=== PATIENT | female | born 1995 | race Caucasian/White ===

== ENCOUNTER → 2018-11-13 | Emergency (ER) | payer MEDICAID, OTHER ==
[~2018-11-13] VITALS: Ht 172.7 cm; Wt 56.7 kg
[~2018-11-13] MED LIST: diphenhydrAMINE HCL 50 MG CAPSULE ONE; diphenhydrAMINE HCL 50 MG CAPSULE PO ONE; predniSONE 10 MG TABLET ONE; predniSONE 10 MG TABLET PO ONE
[2018-11-13 14:33] VITALS: BP 126/79
--- NOTE | 2018-11-13 14:44 | NUR ---
PATIENT AMBULTORY NON DISTRESS MD @ BEDSIDE
--- NOTE | 2018-11-13 15:50 | NUR ---
DC HOME INTRUCTION GIVEN AGREES TO FOLLOW UP PMD IN 2 DAYS VERBALIZED UNDERSTNDING
== END | disposition home or self-care (01) ==
LOC: ER 14:34
DX: T78.40XA Allergy, unspecified, initial encounter (principal); X58.XXXA Exposure to other specified factors, initial encounter
CPT/HCPCS: 99283; J7512; Q0163

== ENCOUNTER 2023-03-23 13:21 | Emergency (ER) | payer OTHER ==
[~2023-03-23] VITALS: Ht 172.7 cm; Wt 68.0 kg
[2023-03-23] MEDS ORDERED: FAMOTIDINE/PF INJ 20 MG/2 ML VIAL IV ONE (14:59)
[2023-03-23 15:04] LABS: BASOPHILS % (AUTO) 0.3 % (0.0-2.0); EOSINOPHILS # (AUTO) 0.1 K/uL (0.0-0.7); EOSINOPHILS % (AUTO) 1.3 % (0.0-6.0); HEMATOCRIT 41 % (33-45); HEMOGLOBIN 14.2 g/dL (11.5-14.8); LYMPHOCYTES # (AUTO) 2.5 K/uL (0.8-4.8); LYMPHOCYTES % (AUTO) 27.8 % (20.0-44.0); MEAN CORPUSCULAR HEMOGLOBIN 30 PG (26.0-33.0); MEAN CORPUSCULAR HGB CONC 35 g/dl (31.0-36.0); MEAN CORPUSCULAR VOLUME 88 fL (82-100); MONOCYTES # (AUTO) 0.7 K/uL (0.1-1.30); NEUTROPHILS # (AUTO) 5.6 K/uL (1.8-8.9); NEUTROPHILS % (AUTO) 62.6 % (43.0-81.0); PLATELET COUNT (AUTO) 258 K/uL (150-450); RED CELL DISTRIBUTION WIDTH 13.4 % (11.5-15.0)
[2023-03-23] MEDS: IV NS 0.9% 1,000 ML BAG IV ONE (15:07)
[2023-03-23] MEDS: FAMOTIDINE/PF INJ 20 MG/2 ML VIAL IV ONE (15:08)
[2023-03-23 15:20] LABS: ALBUMIN 3.8 g/dL (3.4-5.0); BILIRUBIN,DIRECT 0.1 mg/dL (0.0-0.2); BILIRUBIN,TOTAL 0.5 mg/dL (0.2-1.0); CALCIUM, SERUM 9.2 mg/dL (8.5-10.1); CREATININE 0.7 mg/dL (0.6-1.3); POTASSIUM 3.8 mmol/L (3.5-5.1); TOTAL PROTEIN, SERUM 8.3 g/dL (6.4-8.2)
[2023-03-23 15:25] LABS: PREGNANCY TEST URINE QUAL NEGATIVE (NEGATIVE)
[2023-03-23 15:29] LABS: APPEARANCE,URINE CLEAR (CLEAR); BILIRUBIN,URINE NEGATIVE (NEGATIVE); BLOOD, URINE TRACE-INTA Ery/uL (NEGATIVE); COLOR,URINE YELLOW (YELLOW); KETONES,URINE NEGATIVE (NEGATIVE); LEUKOCYTE ESTERASE ,URINE NEGATIVE (NEGATIVE); NITRITE, URINE POSITIVE (NEGATIVE); PROTEIN,URINE NEGATIVE (NEGATIVE); UGLUCOSE NEGATIVE (NEGATIVE); UROBILINOGEN,URINE 0.2 EU/dL (0.2)
[2023-03-23] MEDS ORDERED: NITR100C6 PO (15:52)
[2023-03-23 16:00] LABS: WBC,URINE 0-2 /HPF (0-3)
[2023-03-23 16:01] LABS: ADD URINE CULTURE YES; BACTERIA,URINE 1+ /HPF (None Seen); SQUAMOUS EPITHELIAL CELL,UR None Seen /HPF (None Seen)
[2023-03-23 16:24] VITALS: BP 127/88; TEMP 98.8; O2SAT 100
== END 2023-03-23 16:24 | disposition home or self-care (01) ==
LOC: ER 13:34
DX: N39.0 Urinary tract infection, site not specified (principal); R10.13 Epigastric pain; R10.2 Pelvic and perineal pain
CPT/HCPCS: 99283; 96374; 96361; 85025; 80048; 87086 ×2; 83690; 80076; 84703; 81001; 36415; 84702; J3490; J7030

== ENCOUNTER 2024-10-29 13:13 | Emergency (ER) | payer OTHER ==
[~2024-10-29] VITALS: Ht 172.7 cm; Wt 72.1 kg
[~2024-10-29 13:13] MED LIST changes: +NITR100C6 PO; -diphenhydrAMINE HCL 50 MG CAPSULE ONE; -diphenhydrAMINE HCL 50 MG CAPSULE PO ONE; -predniSONE 10 MG TABLET ONE; -predniSONE 10 MG TABLET PO ONE
[2024-10-29] MEDS: IV NS 0.9% 1,000 ML BAG IV ONE (13:51)
[2024-10-29 13:55] LABS: PLATELET COUNT (AUTO) 293 K/uL (150-450); RED BLOOD CELL COUNT(AUTO) 3.86 MIL/uL (4.0-5.2); RED CELL DISTRIBUTION WIDTH 13.8 % (11.5-15.0); WHITE BLOOD COUNT (AUTO) 13.4 K/uL (4.3-11.0)
[2024-10-29 14:03] LABS: CALCIUM, SERUM 9.4 mg/dL (8.5-10.1); CREATININE 0.5 mg/dL (0.6-1.3); SODIUM SERUM 135 mmol/L (136-145); UREA NITROGEN, BLOOD 12 mg/dL (7-18)
[2024-10-29 14:09] LABS: ASPARTATE AMINOTRANSFERASE 20 U/L (15-37); TOTAL PROTEIN, SERUM 7.3 g/dL (6.4-8.2)
[2024-10-29 15:18] LABS: AMPHETAMINE, URINE NEGATIVE (NEGATIVE); BARBITURATE, URINE NEGATIVE (NEGATIVE); BENZODIAZEPINE, URINE NEGATIVE (NEGATIVE); CANNABINOID, URINE NEGATIVE (NEGATIVE); COCCAINE, URINE NEGATIVE (NEGATIVE); OPIATE, URINE NEGATIVE (NEGATIVE)
[2024-10-29 15:20] LABS: APPEARANCE,URINE CLEAR (CLEAR); BLOOD, URINE NEGATIVE Ery/uL (NEGATIVE); LEUKOCYTE ESTERASE ,URINE NEGATIVE (NEGATIVE); NITRITE, URINE NEGATIVE (NEGATIVE); UGLUCOSE NEGATIVE (NEGATIVE)
[2024-10-29 20:05] VITALS: BP 96/61; TEMP 98.1; O2SAT 100
== END 2024-10-29 20:05 | disposition left against medical advice (07) ==
LOC: ER 13:20
DX: O26.892 Other specified pregnancy related conditions, second trimester (principal); O99.342 Other mental disorders complicating pregnancy, second trimester; R47.81 Slurred speech; F50.20 Bulimia nervosa, unspecified; R10.2 Pelvic and perineal pain; Z3A.20 20 weeks gestation of pregnancy
CPT/HCPCS: 99285; 96360; 76805; 93005; 85025; 80048; 80076; 36415; 84484; 86850; 82962; 84702; 80307; 81003; J7030